=== PATIENT | female | born 1985 | race Caucasian/White ===

== ENCOUNTER 2020-04-05 06:11 | Emergency (ER) | payer MEDICAID, SELFPAY ==
[2020-04-05 06:15] VITALS: BP 121/65; PULSE 56; RESP 16; TEMP 36.7; O2SAT 98; BMI 19.2
[2020-04-05 06:33] VITALS: BP 130/61; PULSE 52; RESP 15; O2SAT 99
[2020-04-05 06:43] LABS: Basophils # 0.1 10^3/uL (0.0-0.1); Basophils % 0.6 %; Eosinophils # 0.2 10^3/uL (0.0-0.8); Eosinophils % 1.8 %; Hematocrit 41.3 % (37.0-47.0); Hemoglobin 13.3 g/dL (11.5-15.3); Lymphocytes # 2.5 10^3/uL (0.8-4.8); Lymphocytes % 30.7 %; Mean Corpuscular HGB Conc 32.2 g/dL (30.0-36.0); Mean Corpuscular Hemoglobin 29.8 pg (28.0-34.0); Mean Corpuscular Volume 92.4 fL (81-99); Mean Platelet Volume 10.7 fL (7.4-10.4); Monocytes # 0.7 10^3/uL (0.2-0.9); Neutrophils # 4.8 10^3/uL (1.8-7.7); Neutrophils % 57.7 %; Nucleated Red Blood Cells % 0 %; Platelet Count 306 10^3/cmm (130-400); Red Blood Count 4.47 10^6/uL (4.1-5.3); Red Cell Distribution Width 14.7 % (12.1-15.1); White Blood Count 8.3 10^3/uL (4.0-10.0)
--- NOTE | 2020-04-05 06:43 | W.ED.ABDPA2 ---
Documented by User: Justice Manley DO 04/05/20 15:58 HPI - Abdominal Pain General: Chief Complaint: Abdominal Pain Stated Complaint: ABD PAIN Time Seen by Provider: 04/05/20 06:24 History of Present Illness: HPI narrative: 34-year-old female presents emergency room with complaint of abdominal pain she identifies it to the left lower quadrant of left mid quadrant she woke up at 430 this morning she has been up since she rated initially as a 10 of 10 is a little less now. She has similar pain last week lasted for 2 days she was not seen or evaluated prior to that at one point she thought she had a hernia in the right lower quadrant based bulges that she seen while she was at work. Now and previously when she had the pain she denies any fever dysuria urgency or frequency no hematuria she has no history of nephrolithiasis she never noticed any blood in the stool she has had nausea and vomiting this morning but notes no hematemesis. She not really noticed anything that makes it better or worse it did decrease her appetite some. She has chronic constipation and irritable bowel that does not seem to have changed markedly with any of the symptoms. She denies any direct trauma to the abdomen she denies any new GI or symptoms beyond just having the abdominal pain when it woke her up. She not had any respiratory symptoms not been around anyone is been positive for Kovic. Time and examined her in the ER she is awake and alert answers all questions well is not he received treated significant pain I can get her to do sit up in bed and move without significant discomfort her abdominal exam is relatively benign at this time. MD elicited complaint: abdominal pain Pertinent past history: constipation and other (IBS with constipation) Onset (ago): hour(s) (2 hours) Pain Consistency: intermittent and colicky Location: LLQ Severity: similar to previous episodes Quality: cramping and stabbing Radiation: none Migration to: no migration Exacerbating factors: eating and vomiting Relieving factors: rest Context: history of similar episodes (Similar episode 2 weeks ago) Associated Symptoms: Reports anorexia, diarrhea, nausea, poor appetite and vomiting; Denies belching, bloating, coffee ground emesis, dysuria, fever(s), heartburn, hematochezia, hematuria, hematemesis and melena Review of Systems Const: Denies: fever(s) ENMT: Denies: throat pain, ear or mastoid pain, nasal discharge or nasal congestion Card: Denies: chest pain, edema, dyspnea on exertion or orthopnea Resp: Denies: dyspnea, productive cough or non-productive cough GI: Reports: nausea, vomiting and diarrhea; Denies: hematemesis, coffee ground emesis, heartburn, bloating, belching, hematochezia or melena : Denies: dysuria or hematuria Skin/Breast: Denies: rash or pruritus PFSH ED PFSH: Medical History (Updated 04/05/20 @ 09:31 by Jessa Alexander) Chronic constipation History of kidney injury Incidental traumatic injury to the kidney as a child resolved Irritable bowel Surgical History (Updated 04/05/20 @ 06:52 by Justice Manley DO) H/O lymph node biopsy Previous section Social History (Updated 04/05/20 @ 06:52 by Justice Manley DO) Smoking and tobacco status: current every day smoker cigarettes Number of cigarettes per day: 11-20 Alcohol intake: current Alcohol intake frequency: holidays/special occasions only Physical Exam Const: COMMON NORMALS: no acute distress GENERAL APPEARANCE: cooperative and comfortable ORIENTATION/CONSCIOUSNESS: Yes awake, Yes oriented to person, Yes oriented to place and Yes oriented to time HENMT: COMMON NORMALS: normocephalic, atraumatic, hearing grossly normal bilaterally, external ears normal, EAC's normal, TM's normal bilaterally, Normal nasal mucous membranes and turbinates present, moist oral mucous membranes and oropharynx normal HEAD & SCALP: normocephalic and atraumatic NOSE: Normal nasal mucous membranes and turbinates present EXTERNAL EAR: Yes external ears normal EXTERNAL AUDITORY CANAL: EAC's normal TYMPANIC MEMBRANE: TM's normal bilaterally Eye: COMMON NORMALS: Equal, round and reactive pupils present, EOMs intact bilaterally, conjunctivae normal and no scleral icterus CONJUNCTIVA: Yes conjunctivae normal PUPIL: Yes Equal, round and reactive pupils present Neck/C-Spine: COMMON NORMALS: full ROM, no lymphadenopathy, supple and no JVD Lymph: LYMPHATIC: no lymphadenopathy noted and no lymphedema noted Resp: COMMON NORMALS: normal respiratory effort, No retractions, No use of accessory muscles and clear to auscultation bilaterally AUSCULTATION: clear to auscultation bilaterally Cardio: COMMON NORMALS: no JVD, regular rate, regular rhythm and No murmurs present (Cardio) RATE: regular rate RHYTHM: regular rhythm GI: COMMON NORMALS: Soft to palpation and No hepatosplenomegaly present AUSCULTATION: Yes normoactive bowel sounds PALPATION: Yes Soft to palpation, No Tenderness to palpation present (GI), No Guarding due to palpation present (GI) and Yes No hepatosplenomegaly present Extremity: COMMON NORMALS: normal to inspection, capillary refill normal, no clubbing, cyanosis or edema, no calf tenderness and no pedal edema Neuro: SENSORIUM/ORIENTATION: Yes oriented to person, Yes oriented to place and Yes oriented to time Skin: COMMON NORMALS: no rashes or lesions noted GENERAL SKIN EXAM: no rashes or lesions noted Course Vital Signs: Vital signs: Vital Signs Temperature 98.1 F 04/05/20 06:15 Pulse Rate 71 04/05/20 09:38 Respiratory Rate 17 04/05/20 09:38 Blood Pressure 113/73 04/05/20 09:38 Pulse Oximetry 100 04/05/20 08:30 MDM - Abdominal Pain MDM Narrative: Medical decision making narrative: Care turned over to Dr. Alexander at change of shift. Please see his notes for final diagnosis and disposition. Lab Data: Labs: Lab Results 04/05/20 04/05/20 04/05/20 Range/Units 06:34 06:34 07:20 WBC 8.3 (4.0-10.0) 10^3/ uL RBC 4.47 (4.1-5.3) 10^6/u L Hgb 13.3 (11.5-15.3) g/dL Hct 41.3 (37.0-47.0) % MCV 92.4 (81-99) fL MCH 29.8 (28.0-34.0) pg MCHC 32.2 (30.0-36.0) g/dL RDW 14.7 (12.1-15.1) % Plt Count 306 (130-400) 10^3/c mm MPV 10.7 H (7.4-10.4) fL Neut % (Auto) 57.7 % Lymph % (Auto) 30.7 % [place] % (Auto) 9.0 % Eos % (Auto) 1.8 % Baso % (Auto) 0.6 % Neut # (Auto) 4.8 (1.8-7.7) 10^3/u L Lymph # (Auto) 2.5 (0.8-4.8) 10^3/u L [place] # (Auto) 0.7 (0.2-0.9) 10^3/u L Eos # (Auto) 0.2 (0.0-0.8) 10^3/u L Baso # (Auto) 0.1 (0.0-0.1) 10^3/u L Nucleated RBC % (a uto) 0 % Nucleated RBCs # 0.0 /100WBC Sodium 140 (136-145) mmol/L Potassium 3.6 (3.5-5.1) mmol/L Chloride 103 (98-107) mmol/L Carbon Dioxide 23 (22-29) mmol/L Anion Gap 17.6 (5-19) BUN 5 L (6-20) mg/dL Creatinine 0.6 (0.5-0.9) mg/dL GFR Calculation 115.9 (90-130) mL/min Glucose 110 (65-115) mg/dL Calculated Osmolal ity 286 (285-295) mOsm/k g Calcium 9.6 (8.5-10.5) mg/dL Total Bilirubin 0.4 (0.15-1.2) mg/dL AST 19 (0-32) U/L ALT 8 (0-33) U/L Alkaline Phosphata se 92 (35-105) IU/L Total Protein 7.2 (6.6-8.7) g/dL Albumin 4.5 (3.5-5.2) g/dL Globulin 2.7 (1.3-4.6) g/dL HCG, Qual Negative (Negative) Urine Color (Yellow) Urine Appearance (CLEAR) Urine pH (5-7) Ur Specific Gravit y (1.005-1.030) Urine Protein (Negative) Urine Glucose (UA) (Normal) Urine Ketones (Negative) Urine Blood (Negative) Urine Nitrate (Negative) Urine Bilirubin (NEGATIVE) Urine Urobilinogen (Negative) mg/dL Ur Leukocyte Juanis ase (Negative) Urine RBC (0-2) /hpf Urine WBC (0-5) /hpf Ur Squamous Epith Cells (0-5) Ur Transition Epit h Cell /hpf Amorphous Sediment Urine Bacteria (NONE) Urine Mucus 04/05/20 Range/Units 07:20 WBC (4.0-10.0) 10^3/ uL RBC (4.1-5.3) 10^6/u L Hgb (11.5-15.3) g/dL Hct (37.0-47.0) % MCV (81-99) fL MCH (28.0-34.0) pg MCHC (30.0-36.0) g/dL RDW (12.1-15.1) % Plt Count (130-400) 10^3/c mm MPV (7.4-10.4) fL Neut % (Auto) % Lymph % (Auto) % [place] % (Auto) % Eos % (Auto) % Baso % (Auto) % Neut # (Auto) (1.8-7.7) 10^3/u L Lymph # (Auto) (0.8-4.8) 10^3/u L [place] # (Auto) (0.2-0.9) 10^3/u L Eos # (Auto) (0.0-0.8) 10^3/u L Baso # (Auto) (0.0-0.1) 10^3/u L Nucleated RBC % (a uto) % Nucleated RBCs # /100WBC Sodium (136-145) mmol/L Potassium (3.5-5.1) mmol/L Chloride (98-107) mmol/L Carbon Dioxide (22-29) mmol/L Anion Gap (5-19) BUN (6-20) mg/dL Creatinine (0.5-0.9) mg/dL GFR Calculation (90-130) mL/min Glucose (65-115) mg/dL Calculated Osmolal ity (285-295) mOsm/k g Calcium (8.5-10.5) mg/dL Total Bilirubin (0.15-1.2) mg/dL AST (0-32) U/L ALT (0-33) U/L Alkaline Phosphata se (35-105) IU/L Total Protein (6.6-8.7) g/dL Albumin (3.5-5.2) g/dL Globulin (1.3-4.6) g/dL HCG, Qual (Negative) Urine Color Yellow (Yellow) Urine Appearance Sl hazy (CLEAR) Urine pH 5 (5-7) Ur Specific Gravit y 1.025 (1.005-1.030) Urine Protein Neg (Negative) Urine Glucose (UA) Norm (Normal) Urine Ketones Negative (Negative) Urine Blood Trace H (Negative) Urine Nitrate Negative (Negative) Urine Bilirubin Neg (NEGATIVE) Urine Urobilinogen 1 H (Negative) mg/dL Ur Leukocyte Juanis ase Negative (Negative) Urine RBC Rare (0-2) /hpf Urine WBC Rare (0-5) /hpf Ur Squamous Epith Cells 25-40 H (0-5) Ur Transition Epit h Cell 0-4 /hpf Amorphous Sediment Not Reportable Urine Bacteria 1+ H (NONE) Urine Mucus 2+ Discharge Plan Discharge Patient Disposition: Home, Self-Care Clinical Impression: Multiple pulmonary nodules Abdominal pain Qualifiers: Abdominal location: generalized Qualified Code(s): R10.84 - Generalized abdominal pain Condition: Stable Prescriptions: New Zofran 4 mg tablet 4 mg PO Q6H PRN (Reason: nausea and vomiting) Qty: 20 RF: 0 dicyclomine 20 mg tablet 20 mg PO QID Qty: 10 RF: 0 Discharge Orders: Discharge Order (Routine); Ordered 04/05/20 Ordered By: Jessa Alexander Referrals: Kee Durham MD [Physician] - 1-3 days Discharge Diet: Advance as tolerated and Clear Liquid Discharge Activity: Increase activity as tolerated Patient Instructions: Acute Abdominal Pain (ED), Abdominal Pain (ED), Pulmonary Nodules (ED) Activity Restrictions/Additional Instructions: Please return to the ER immediately for any of the signs or symptoms listed on your discharge instruction sheets, worsening/changing of your symptoms, you are not getting better as quickly as expected, or for ANY other cause or concerns. A definitive cause of your symptoms has not been determined. If your symptoms worsen, you began to vomit, develop a fever, you have blood in your stools, or you have any other concerns please return to the ER immediately for recheck. Be certain to follow-up with your doctor in regards to your need to follow your pulmonary nodules. Discharge Date/Time: 04/05/20 09:36 Sign Out Sign Out Data: Patient Sign Out occurred on 04/05/20 at 09:14. Patient's care was discussed, and care was transferred from to Jessa Alexander. Coding Level of Care Code ED Polymer Scientist for Chg Fwd Exam Comprehensive Documented by User: Jessa Alexander 04/05/20 11:21 HPI - Abdominal Pain General: Chief Complaint: Abdominal Pain Stated Complaint: ABD PAIN Time Seen by Provider: 04/05/20 06:24 PFSH ED PFSH: Medical History (Updated 04/05/20 @ 09:31 by Jessa Alexander) Chronic constipation History of kidney injury Incidental traumatic injury to the kidney as a child resolved Irritable bowel Surgical History (Updated 04/05/20 @ 06:52 by Justice Manley DO) H/O lymph node biopsy Previous section Social History (Updated 04/05/20 @ 06:52 by Justice Manley DO) Smoking and tobacco status: current every day smoker cigarettes Number of cigarettes per day: - Alcohol intake: current Alcohol intake frequency: holidays/special occasions only Course Vital Signs: Vital signs: Vital Signs Temperature 98.1 F 04/05/20 06:15 Pulse Rate 71 04/05/20 09:38 Respiratory Rate 17 04/05/20 09:38 Blood Pressure 113/73 04/05/20 09:38 Pulse Oximetry 100 04/05/20 08:30 MDM - Abdominal Pain MDM Narrative: Medical decision making narrative: Cady is a very nice 34-year-old female turned over to me at change of shift from Dr. Manley. Please see his notes for his history, physical exam and medical decision-making notes. On my exam the patient's abdomen is soft and nontender. There is no signs of peritonitis or surgical abdomen. The patient feels comfortable going home but does agree to return should her symptoms change or worsen. Lab Data: Attestation: I reviewed the patient's lab results. Labs: Lab Results 04/05/20 04/05/20 04/05/20 Range/Units 06:34 06:34 07:20 WBC 8.3 (4.0-10.0) 10^3/ uL RBC 4.47 (4.1-5.3) 10^6/u L Hgb 13.3 (11.5-15.3) g/dL Hct 41.3 (37.0-47.0) % MCV 92.4 (81-99) fL MCH 29.8 (28.0-34.0) pg MCHC 32.2 (30.0-36.0) g/dL RDW 14.7 (12.1-15.1) % Plt Count 306 (130-400) 10^3/c mm MPV 10.7 H (7.4-10.4) fL Neut % (Auto) 57.7 % Lymph % (Auto) 30.7 % [place] % (Auto) 9.0 % Eos % (Auto) 1.8 % Baso % (Auto) 0.6 % Neut # (Auto) 4.8 (1.8-7.7) 10^3/u L Lymph # (Auto) 2.5 (0.8-4.8) 10^3/u L [place] # (Auto) 0.7 (0.2-0.9) 10^3/u L Eos # (Auto) 0.2 (0.0-0.8) 10^3/u L Baso # (Auto) 0.1 (0.0-0.1) 10^3/u L Nucleated RBC % (a uto) 0 % Nucleated RBCs # 0.0 /100WBC Sodium 140 (136-145) mmol/L Potassium 3.6 (3.5-5.1) mmol/L Chloride 103 (98-107) mmol/L Carbon Dioxide 23 (22-29) mmol/L Anion Gap 17.6 (5-19) BUN 5 L (6-20) mg/dL Creatinine 0.6 (0.5-0.9) mg/dL GFR Calculation 115.9 (90-130) mL/min Glucose 110 (65-115) mg/dL Calculated Osmolal ity 286 (285-295) mOsm/k g Calcium 9.6 (8.5-10.5) mg/dL Total Bilirubin 0.4 (0.15-1.2) mg/dL AST 19 (0-32) U/L ALT 8 (0-33) U/L Alkaline Phosphata se 92 (35-105) IU/L Total Protein 7.2 (6.6-8.7) g/dL Albumin 4.5 (3.5-5.2) g/dL Globulin 2.7 (1.3-4.6) g/dL HCG, Qual Negative (Negative) Urine Color (Yellow) Urine Appearance (CLEAR) Urine pH (5-7) Ur Specific Gravit y (1.005-1.030) Urine Protein (Negative) Urine Glucose (UA) (Normal) Urine Ketones (Negative) Urine Blood (Negative) Urine Nitrate (Negative) Urine Bilirubin (NEGATIVE) Urine Urobilinogen (Negative) mg/dL Ur Leukocyte Juanis ase (Negative) Urine RBC (0-2) /hpf Urine WBC (0-5) /hpf Ur Squamous Epith Cells (0-5) Ur Transition Epit h Cell /hpf Amorphous Sediment Urine Bacteria (NONE) Urine Mucus 04/05/20 Range/Units 07:20 WBC (4.0-10.0) 10^3/ uL RBC (4.1-5.3) 10^6/u L Hgb (11.5-15.3) g/dL Hct (37.0-47.0) % MCV (81-99) fL MCH (28.0-34.0) pg MCHC (30.0-36.0) g/dL RDW (12.1-15.1) % Plt Count (130-400) 10^3/c mm MPV (7.4-10.4) fL Neut % (Auto) % Lymph % (Auto) % [place] % (Auto) % Eos % (Auto) % Baso % (Auto) % Neut # (Auto) (1.8-7.7) 10^3/u L Lymph # (Auto) (0.8-4.8) 10^3/u L [place] # (Auto) (0.2-0.9) 10^3/u L Eos # (Auto) (0.0-0.8) 10^3/u L Baso # (Auto) (0.0-0.1) 10^3/u L Nucleated RBC % (a uto) % Nucleated RBCs # /100WBC Sodium (136-145) mmol/L Potassium (3.5-5.1) mmol/L Chloride (98-107) mmol/L Carbon Dioxide (22-29) mmol/L Anion Gap (5-19) BUN (6-20) mg/dL Creatinine (0.5-0.9) mg/dL GFR Calculation (90-130) mL/min Glucose (65-115) mg/dL Calculated Osmolal ity (285-295) mOsm/k g Calcium (8.5-10.5) mg/dL Total Bilirubin (0.15-1.2) mg/dL AST (0-32) U/L ALT (0-33) U/L Alkaline Phosphata se (35-105) IU/L Total Protein (6.6-8.7) g/dL Albumin (3.5-5.2) g/dL Globulin (1.3-4.6) g/dL HCG, Qual (Negative) Urine Color Yellow (Yellow) Urine Appearance Sl hazy (CLEAR) Urine pH 5 (5-7) Ur Specific Gravit y 1.025 (1.005-1.030) Urine Protein Neg (Negative) Urine Glucose (UA) Norm (Normal) Urine Ketones Negative (Negative) Urine Blood Trace H (Negative) Urine Nitrate Negative (Negative) Urine Bilirubin Neg (NEGATIVE) Urine Urobilinogen 1 H (Negative) mg/dL Ur Leukocyte Juanis ase Negative (Negative) Urine RBC Rare (0-2) /hpf Urine WBC Rare (0-5) /hpf Ur Squamous Epith Cells 25-40 H (0-5) Ur Transition Epit h Cell 0-4 /hpf Amorphous Sediment Not Reportable Urine Bacteria 1+ H (NONE) Urine Mucus 2+ Imaging Data ^: CT Abd/Pel: Radiologist's impression: [address] [address] [address] Scan Report Signed Patient: Cady Branch Unit #: [id number] : 1985 Age/Sex: 34 / F ADM Date: 04/05/20 Loc: ER Room/Bed: Attending Dr: Ordering Provider/Ordering MD: Justice Manley DO Date of Service: 04/05/20 Procedure(s): CT abdomen pelvis w con* [id number] Accession Number(s): [id number] Report Number: [id number] PROCEDURE INFORMATION: Exam: CT Abdomen And Pelvis With Contrast Exam date and time: 04/05/2020 7:45 AM Age: 34 years old Clinical indication: Abdominal pain; Localized; Left lower quadrant (llq); Prior surgery; Surgery type: Tubal; Additional info: Abd pain TECHNIQUE: Imaging protocol: Computed tomography of the abdomen and pelvis with intravenous contrast. Radiation optimization: All CT scans at this facility use at least one of these dose optimization techniques: automated exposure control; mA and/or kV adjustment per patient size (includes targeted exams where dose is matched to clinical indication); or iterative reconstruction. Contrast material: OMNI 300; Contrast volume: 75 ml; Contrast route: INTRAVENOUS (IV); [place] [facility] [place] 11/27/2014 11:02 AM RADIATION DOSE METRICS: Total DLP (mGy-cm): 462.89 FINDINGS: Lungs: There are numerous small nodules in the right lower lobe at the lung base. Sample nodule measures 0.4 cm in the right lower lobe posteriorly on series 2, image 5. Liver: Unremarkable. Gallbladder and bile ducts: Unremarkable. Pancreas: Unremarkable. Spleen: Unremarkable. Adrenals: Unremarkable. Kidneys and ureters: The kidneys are unremarkable. No renal stones identified. No hydronephrosis on either side. Stomach and bowel: No bowel obstruction identified. No diverticulitis identified. Appendix: A normal-appearing appendix is seen in the right lower quadrant. Intraperitoneal space: No free intraperitoneal air identified. No free intraperitoneal fluid identified. Vasculature: No abdominal aortic aneurysm. Lymph nodes: Unremarkable. Bladder: Unremarkable as visualized. Reproductive: Unremarkable as visualized. Bones/joints: Unremarkable. No acute fracture. Soft tissues: Unremarkable. CT/CT abdomen pelvis w con* [id number] IMPRESSION: 1. No acute intra-abdominal/intrapelvic process identified. 2. Numerous small lung nodules in the right lower lobe at the lung base. Possible etiologies include granulomata and infectious/inflammatory nodules. See comment. COMMENT: If patient does not have known cancer, follow up should be based on clinical information because of the low risk of cancer in this age group. (john Burnham al., Fleischner Society, 2017) Radiation Dose CTDIVOL = (mGy): DLP = 462.89 (mGy-cm) Dictated By: Giles Canela MD Signed By: Giles Canela MD Signed Date/Time: 04/05/20 0851 DD/ 0849 Discharge Plan Discharge Patient Disposition: Home, Self-Care Clinical Impression: Multiple pulmonary nodules Abdominal pain Qualifiers: Abdominal location: generalized Qualified Code(s): R10.84 - Generalized abdominal pain Condition: Stable Prescriptions: New Zofran 4 mg tablet 4 mg PO Q6H PRN (Reason: nausea and vomiting) Qty: 20 RF: 0 dicyclomine 20 mg tablet 20 mg PO QID Qty: 10 RF: 0 Discharge Orders: Discharge Order (Routine); Ordered 04/05/20 Ordered By: Jessa Alexander Referrals: Kee Durham MD [Physician] - 1-3 days Discharge Diet: Advance as tolerated and Clear Liquid Discharge Activity: Increase activity as tolerated Patient Instructions: Acute Abdominal Pain (ED), Abdominal Pain (ED), Pulmonary Nodules (ED) Activity Restrictions/Additional Instructions: Please return to the ER immediately for any of the signs or symptoms listed on your discharge instruction sheets, worsening/changing of your symptoms, you are not getting better as quickly as expected, or for ANY other cause or concerns. A definitive cause of your symptoms has not been determined. If your symptoms worsen, you began to vomit, develop a fever, you have blood in your stools, or you have any other concerns please return to the ER immediately for recheck. Be certain to follow-up with your doctor in regards to your need to follow your pulmonary nodules. Discharge Date/Time: 04/05/20 09:36 Sign Out Sign Out Data: Patient Sign Out occurred on 04/05/20 at 09:14. Patient's care was discussed, and care was transferred from to Jessa Alexander. Coding Level of Care Code ED Polymer Scientist for Evette Fwd Exam Comprehensive
[2020-04-05] MEDS: ondansetron 2 mg/ML SDV 2 mL 4 MG IVP (06:46)
[2020-04-05] MEDS: sodium chloride 0.9% 1,000 ML 999 ML IV (06:46)
[2020-04-05 06:59] LABS: Alanine Aminotransferase 8 U/L (0-33); Albumin Level 4.5 g/dL (3.5-5.2); Alkaline Phosphatase 92 IU/L (35-105); Anion Gap 17.6 (5-19); Aspartate Amino Transferase 19 U/L (0-32); Blood Urea Nitrogen 5 mg/dL (6-20); Calcium 9.6 mg/dL (8.5-10.5); Carbon Dioxide 23 mmol/L (22-29); Chloride 103 mmol/L (98-107); Globulin 2.7 g/dL (1.3-4.6); Glomerular Filtration Rate 115.9 mL/min (90-130); Glucose 110 mg/dL (65-115); Osmolality Calculated 286 mOsm/kg (285-295); Potassium 3.6 mmol/L (3.5-5.1); Sodium 140 mmol/L (136-145); Total Bilirubin 0.4 mg/dL (0.15-1.2); Total Protein 7.2 g/dL (6.6-8.7)
[2020-04-05 07:21] VITALS: BP 112/69; PULSE 58; RESP 18; O2SAT 98
[2020-04-05 08:05] LABS: HCG Qualitative Urine. Negative (Negative)
[2020-04-05 08:06] LABS: Add Urine Microscopic? YES; Bilirubin Urine Neg (NEGATIVE); Blood Urine Trace (Negative); Glucose Urine UA Norm (Normal); Ketones Urine Negative (Negative); Leukocyte Esterase Urine Negative (Negative); Nitrate Urine Negative (Negative); Protein Urine Neg (Negative); Specific Gravity, Urine 1.025 (1.005-1.030); Urine Appearance SL Hazy (CLEAR); Urine Color Yellow (Yellow); Urobilinogen Urine 1 mg/dL (Negative); pH Urine 5 (5-7)
[2020-04-05 08:10] LABS: RBC Urine RARE /hpf (0-2)
[2020-04-05 08:11] LABS: Bacteria Urine 1+; Mucus Urine 2+; Squamous Epithelial Cell Urine 25-40 (0-5); Transitional Epi Cells Urine 0-4 /hpf; WBC Urine RARE /hpf (0-5)
[2020-04-05 08:12] LABS: Add Urine Culture? No
[2020-04-05] MEDS: iohexol 300 mg/mL 100 mL Btl IV (08:26)
[2020-04-05 08:30] VITALS: BP 119/77; PULSE 63; RESP 16; O2SAT 100
[2020-04-05 09:38] VITALS: BP 113/73; PULSE 71; RESP 17
== END 2020-04-05 09:36 | disposition home or self-care (01) ==
PROVIDERS: Family Medicine; Emergency Provider Emergency Medicine
DX: R10.84 Generalized abdominal pain (principal); R91.8 Other nonspecific abnormal finding of lung field; F17.210 Nicotine dependence, cigarettes, uncomplicated
CPT/HCPCS: 12345; 74177; 80053; 81001; 81003; 81025; 85025; 96360; 96361; 96374; 96375; 99283; 99284; J2405; J7030; Q9967

== ENCOUNTER 2020-05-11 13:09 | Outpatient (CLI) | payer MEDICAID, SELFPAY ==
--- NOTE | 2020-05-11 13:14 | CT_ITS ---
WS: [id number] CT ABDOMEN AND PELVIS WITH CONTRAST HISTORY: PERIUMBILICAL ABDOMINAL PAIN TECHNIQUE: Imaging performed of the abdomen and pelvis with IV contrast. Single phase imaging of the abdomen. Coronal and sagittal reformats are submitted. All CT scans at [facility] use at least one of these dose optimization techniques: automated exposure control; mA and/or kV adjustment per patient size (includes targeted exams where dose is matched to clinical indication); or iterativ e reconstruction. IV CONTRAST: Omnipaque 300; 95 mL IV. Oral contrast: Yes. DLP: 899.32 mGycm COMPARISON: 04/05/2020 Lower thorax: Mild dependent changes at the lung base. Stable 4 mm nodule medial RIGHT lower lobe. Heart is normal size. No hiatal hernia. Liver/biliary system: Normal size with no intrahepatic dilatation. Gallbladder: Normal. No gallstones or wall thickening. No pericholecystic fluid. Pancreas: Normal. Spleen: Normal. Adrenal glands: Normal. Right kidney: Normal. Left kidney: Normal. Aorta: Normal. Lymphadenopathy: None. Free fluid: There is a small amount of free fluid in the cul-de-sac, slightly greater to the RIGHT of midline. GI tract: Mild to moderate diffuse, circumferential thickening of the ascending colon and the proxima l transverse colon. No obstruction. Terminal ileum is negative. The appendix is normal. Abdominal wall: Unremarkable abdominal wall. No hernia. Pelvis: Anteverted uterus. Uterus is slightly enlarged and there is fluid along the endometrial canal . Small cysts bilaterally and within each ovary. There is a small corpus luteum cyst on the RIGHT jeffrey suring 12 mm with enhancing wall. Bones: Unremarkable. CT/CT abdomen pelvis w con* [id number] IMPRESSION: 1. Mild to moderate diffuse circumferential mucosal thickening of the ascendin g and proximal transverse colon. Consider inflammatory processes such as ulcera tive colitis or Crohn's disease. May be infectious. Not definitely seen on the prior study which was performed without oral contrast. 2. Uterus is enlarged with fluid-filled endometrium. Patient denies . 3. Small amount of free fluid in the cul-de-sac and bilateral ovarian cysts. 4. Normal appendix.
[2020-05-11] MEDS: iohexol 300 mg/mL 100 mL Btl IV (14:36)
[2020-05-11] MEDS: iohexol 300 mg/mL 50 mL Btl IV (14:41)
== END 2020-05-11 13:10 | disposition home or self-care (01) ==
LOC: RADWPI 13:14
PROVIDERS: Visit Provider Nurse Practitioner Family
DX: R10.33 Periumbilical pain (principal); Q51.9 Congenital malformation of uterus and cervix, unspecified
CPT/HCPCS: 74177; Q9967

== ENCOUNTER → 2024-06-05 15:20 | Outpatient (BNVA) | payer BC, MEDICAID, SELFPAY | PROVIDERS: Visit Provider Nurse Practitioner Women's Health | DX: N92.0 Excessive and frequent menstruation with regular cycle (principal) | CPT/HCPCS: 82670; 83001; 83002; 83520; 84146; 84402; 84403; 84443 ==

== ENCOUNTER → 2024-07-01 09:15 | Outpatient (BNVA) | payer BC, MEDICAID, SELFPAY | PROVIDERS: Visit Provider Nurse Practitioner Women's Health | DX: N92.6 Irregular menstruation, unspecified (principal) | CPT/HCPCS: 76830 ==